=== PATIENT | male | born 1950 | race Caucasian/White ===

== ENCOUNTER → 2016-09-30 | Outpatient (CLI) | payer OTHER, MEDICARE ==
[~2016-09-30] MED LIST: ADVIL200 M1 PO; AMLODIPINE BESY10 MG PO; CELEXA20 MG PO; CIPRO500 M1 PO; CITALOPRAM HBR40 MG PO; IBUPROFEN 200200 M1 PO; LIORESAL 10 MG10 MG PO; LISINOPRIL20 MG PO; LISINOPRIL40 MG PO; NABUMETONE 750750 M1 PO; NORCO 10-325 T1 EACH PO; NORVASC10 MG PO; PRINIVIL20 M1 PO; TYLENOL325 MG PO; [UNRECOGNIZED DRUG - REMARK]
== END ==
LOC: RAD 09:50
DX: M47.816 Spondylosis without myelopathy or radiculopathy, lumbar region (principal); M54.9 Dorsalgia, unspecified